=== PATIENT | male | born 1935 | race Caucasian/White ===

== ENCOUNTER → 2017-02-06 | Outpatient (CLI) | payer OTHER ==
[~2017-02-06] VITALS: Ht 177.8 cm; Wt 88.5 kg
[~2017-02-06] MED LIST: ASPIR 8181 MG PO; CO Q-10100 MG PO; LIPITOR 20 MG T20 M1 PO; LISINOPRIL20 MG PO; UNICOMPLEX M TA1 TA1 PO
--- NOTE | ~2017-02-06 | H ---
[facility] [place] [id number] HISTORY AND PHYSICAL Name: TERESITA ZURITA Room #: REG ABDIRIZAK NguyenBela#: [id number] Admission: 02/06/17 Attend Phys: Asaf Jensen MD, FA Discharge: Date of : 31 Report #: [id number] THIS REPORT FOR: //name// CC: Asaf Martin MD DATE OF SERVICE: 02/06/2017 HISTORY OF PRESENT ILLNESS: The patient is an 81-year-old white male who was brought to the outpatient department to undergo pacemaker generator change. The patient initially presented in 1999 with fatigue. 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 He had a dual chamber pacemaker inserted at [facility]. He underwent a generator change in 2006. Previous cardiac workup included a nuclear stress test 2009, that showed no ischemia. Echocardiogram in 2013, showed an ejection fraction of 60%. Recently, the patient complains of some fatigue. His pacemaker was noted to be at TYLOR. I recommended he undergo a generator change. The patient stays active including mowing his own yard. He denies any chest pain, shortness of breath. He notes occasional skipped heartbeat, but no syncope. He has had no recent fever or cough. PAST MEDICAL HISTORY: Significant for hernia repair. He has had previous removal of parathyroid gland for hypercalcemia. He has a history of hypertension, hyperlipidemia. He has had previous mode switching of his pacemaker in the past. Anticoagulation was recommended, but the patient refused. CURRENT MEDICATIONS: Include lisinopril, Lipitor, aspirin, tramadol. ALLERGIES: He has no known drug allergies. FAMILY HISTORY: Negative for heart disease. SOCIAL HISTORY: He is . He and his live in [place]. 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 No smoking or alcohol history. REVIEW OF SYSTEMS: He has had no history of stroke, asthma, peptic ulcer disease, liver disease. He has chronic kidney disease and is followed Dr. Martinez. He has had a skin cancer removed in the past. No psychiatric illness. Does have arthritis. PHYSICAL EXAMINATION: GENERAL: Revealed an elderly male, lying in bed, appeared in no distress. VITAL SIGNS: Blood pressure 140/80, pulse is 65, respirations nonlabored. HEENT: Mucous membranes are moist. He was anicteric. Conjunctivae pink. [address] [address] HISTORY AND PHYSICAL Name: TERESITA ZURITA Room #: SULEMA NguyenBela#: [id number] Admission: 02/06/17 Attend Phys: Asaf Jensen MD, FA Discharge: Date of : 31 Report #: [id number] NECK: Supple, no carotid bruits, no jugular venous distention. CHEST: Clear to auscultation. CARDIOVASCULAR: Regular rate and rhythm, no murmur. ABDOMEN: Soft, nontender. EXTREMITIES: Had no edema. Posterior tibial pulse was 3+ bilaterally. SKIN: Warm, dry. NEUROLOGIC: Nonfocal. LABORATORY DATA: ECG shows ventricular paced rhythm at 65 beats per minute consistent with TYLOR. IMPRESSION AND RECOMMENDATIONS: 1. Pacemaker generator TYLOR. Recommend generator change. 2. High-degree AV block. The patient apparently is pacer dependent. 3. Hypertension. The patient is on an NICKI inhibitor. 4. Hyperlipidemia. The patient is on a statin drug. 5. History of hypercalcemia with subsequent parathyroidectomy. 6. History of skin cancer. 7. Chronic kidney disease. The patient is followed by nephrology. By: [id number] Asaf Jensen MD, FACC /nt
--- NOTE | ~2017-02-06 | CATHLAB ---
[facility] [address] [place] [address] INVASIVE PROCEDURE REPORT Name: TERESITA ZURITA Room #: REG [facility] [id number] Admission: 02/06/17 Attend Phys: Asaf Jensen MD Discharge: Date of : 31 Date of Service: 02/06/17 0855 Report #: [id number] THIS REPORT FOR: //name// CC: Asaf Martin MD DATE OF SERVICE: 02/06/2017 TITLE OF PROCEDURE: Replacement of a permanent dual-chamber pacemaker generator. PROCEDURE: The patient had a history of complete heart block. The patient had a previous pacemaker implantation using a Medtronic dual-chamber pacemaker. The patient was pacemaker dependent. His pacemaker was noted to be at TYLOR. I recommended a generator change. The patient was brought to the cardiac catheterization lab after receiving Ancef 2 g intravenously. The area over the permanent pacemaker in the right subclavicular area was cleaned with ChloraPrep and sterilely draped in usual fashion. The area was anesthetized with 1% lidocaine. An incision was made over the permanent pacemaker using a #10 blade. Hemostasis was achieved with electrocautery. A pacemaker pocket was opened using blunt dissection. The old permanent pacemaker generator was then removed from the pocket. This was a Medtronic Adapta model ADDR01, serial #[id number]. A sponge soaked in Ancef was then placed into the pacemaker pocket. The atrial lead was then unscrewed from the pacemaker generator and tested with a programmed analyzer. The atrial lead was found to be adequate for chronic use. The ventricular lead was then removed from the pacemaker generator and immediately attached to the pacemaker analyzer since the patient was pacemaker dependent. Threshold was felt to be adequate for chronic use. The pocket was then irrigated with Ancef solution. The ventricular lead was then removed from the analyzer and attached to the new permanent pacemaker generator, which was a Biotronik model 611229, serial #[id number]. The excess lead and generator were then placed into the pacemaker pocket, which was closed using interrupted 0 absorbable suture. The subcutaneous tissue was approximated using a running 2-0 absorbable suture. The skin was closed using a running subcutaneous suture of 4-0 absorbable suture. After cleaning the incision, skin affix was applied. The patient tolerated the procedure well and left the cardiac catheterization lab in stable condition. During the procedure, the patient did receive 2 mg of Versed and 25 mcg of fentanyl intravenously for sedation. RESULTS: Initially, the patient was ventricular paced at 65 beats minute consistent with pacemaker TYLOR. There did appear to be underlying P waves that were not conducted. The chronic ventricular pacing lead was a Medtronic CapSure model 4092, serial #[id number]. This lead was a past fixation bipolar lead. This lead had no R waves to measure. Threshold for capture of the ventricle was 1 volt at a pulse width of 0.4 milliseconds. Resistance was measured at [address] [facility] [address] [place] [address] INVASIVE PROCEDURE REPORT Name: ZURITATERESITA Opal Room #: REG CL Seema#: [id number] Admission: 02/06/17 Attend Phys: Asaf Jensen MD Discharge: Date of : 31 Date of Service: 02/06/17 0855 Report #: [id number] ohms. The chronic atrial lead was a [employer] CapSure model 4592, serial #[id number]. This lead was a past fixation J-tipped bipolar pacing lead. The atrial lead was able to measure P waves at 5.4 millivolts. Resistance was measured 398 ohms. Threshold for of the atrium was 0.4 milliseconds, pulse width at a voltage of 0.6 volts. The pacemaker was programmed to the DDDR mode with a lower rate limit of 60, upper rate limit of 130 beats minute. Amplitude 2 volts, pulse width 0.4 milliseconds, sensitivity 0.5 millivolts in the atrium, and 2.8 millivolts in the ventricle. By: 0855 1100 Asaf Jensen MD, FACC /nt
[2017-02-06 07:34] LABS: ABSOLUTE NEUTROPHILS 4.9 thou/uL (1.4-8.2); BASOPHILS 0.6 % (0.0-2.0); EOSINOPHILS 2.1 % (0.0-3.0); HEMATOCRIT 52.8 % (42.0-52.0); HEMOGLOBIN 17.7 gm/dL (14.0-18.0); LYMPHOCYTES 23.8 % (24.0-44.0); MCH 29.8 pg (26.0-34.0); MCHC 33.6 g/dL (28.0-37.0); MCV 88.8 fL (80.0-100.0); MONOCYTES 11.3 % (1.0-8.0); PLATELET COUNT 151 thou/uL (150-400); POLYS 62.2 % (36.0-66.0); RBC 5.95 mil/uL (4.50-6.00); RDW 14.3 % (10.5-14.5); WBC 7.9 thou/uL (4.0-11.0)
[2017-02-06 07:41] LABS: MANUAL DIFF NO
[2017-02-06 07:50] LABS: CALCIUM 10.5 mg/dL (8.5-10.1); CREATININE 2.5 mg/dL (0.6-1.3); POTASSIUM 4.6 mmol/L (3.5-5.1)
[2017-02-06 07:54] LABS: ALBUMIN 3.6 g/dL (3.4-5.0); TOTAL BILIRUBIN 0.7 mg/dL (<0.1-1.0); TOTAL PROTEIN 7.1 g/dL (6.4-8.2)
== END ==
LOC: CATH 06:24
PROVIDERS: Internal Medicine Cardiovascular Disease
DX: I44.0 Atrioventricular block, first degree (principal); I12.9 Hypertensive chronic kidney disease with stage 1 through stage 4 chronic kidney disease, or unspecified chronic kidney disease; J45.909 Unspecified asthma, uncomplicated; N18.9 Chronic kidney disease, unspecified; E78.5 Hyperlipidemia, unspecified; Z85.828 Personal history of other malignant neoplasm of skin; I48.91 Unspecified atrial fibrillation; K21.9 Gastro-esophageal reflux disease without esophagitis

== ENCOUNTER → 2018-04-16 | Outpatient (CLI) | payer OTHER | LOC: CAT 04-11 06:29 | DX: D35.1 Benign neoplasm of parathyroid gland (principal); E21.0 Primary hyperparathyroidism; E04.1 Nontoxic single thyroid nodule ==